=== PATIENT | female | born 1970 | race Hispanic/Latino ===

== ENCOUNTER 2023-04-12 06:37 | Emergency (ER) | payer OTHER ==
--- OUTSIDE RECORDS SUMMARY | 2023-04-12 06:39 | XMS REPORT | Continuity of Care Document ---
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 94 ON STAND Problems Condition Condition Condition Status Onset Resolution Last Treating Co mments Source Name Details Category Date Date Treatment Clinician Date HTN HTN Disease Active Vangie (hypertens (hypertens 4-05 Se ybold ion) ion) 00:00: - 00 Externa l History of History of Disease Active K anjelica kidney kidney 05 Seybold stones stones 00:00: - 00 Externa l Well adult Well adult Disease Active K elsey exam exam 4-05 Seybold 00:00: - 00 Externa l History of History of Disease Active Overview : Vangie hemorrhagi hemorrhagi 08-10 Bharti Mata c c 00:00: g of this - cerebrovas cerebrovas 00 note Ex terna cular cular might be l accident accident different (CVA) with (CVA) with from the residual residual original. deficit deficit Some left side weakness Allergies, Adverse Reactions, Alerts This patient has no known allergies or adverse reactions. Social History Social Habit Start Date Stop Date Quantity Comments Source Gender identity Vangie Se ybold - External Sexual orientation Vangie Mata - External Tobacco use and 2022-11-12 2022-11-12 Smokeless tobacco Get Mata exposure 00:00:00 00:00:00 non-user - External Alcohol intake 2022-11-12 2022-11-12 Current drinker of Get Mata 00:00:00 00:00:00 alcohol (finding) - Exter nal History of Social 2022-11-12 2022-11-12 Vangie Mata function 00:00:00 00:00:00 - External Education 2022-11-12 2022-11-12 10 Vangie Mata 00:00:00 00:00:00 - External Alcohol Comment 2022-11-12 2022-11-12 occasionally Vangie Mata 00:00:00 00:00:00 - External Sex [birth year] At [birth year] Vangie allen 00:00:00 00:00:00 - External Smoking Status Start Date Stop Date Source Never smoked tobacco Vangie Crawford old - External Medications Ordered Filled Start Stop Current Ordering Indication Dosage Frequency Signature Comments Components Source Medication Medication Date Date Medication? Clinician (SIG) Name Name LISINOPRIL- 2022- No 1{tbl} Take 1 Álvaro dejesus HCTZ 20-25 4-05 04-05 tablet by y bold MG oral 10:18: 00:00 mouth - Tablet 54 :00 daily Externa l LISINOPRIL- Yes [id number] 1{tbl} Take 1 Vangie HCTZ 20-25 4-05 tablet by Seyb old MG oral 00:00: mouth - Tablet 00 daily Externa l TAKE 1 No TABLET BY 9-05 MOUTH ONCE 00:00: DAILY IN 00 THE MORNING loratadine 2021-0 No 1mg 10 mg 6-23 tablet 00:00: 00 lisinopril 2021-0 No 1mg 20 5-26 mg-hydrochl 00:00: orothiazide 00 25 mg tablet Dose 2021-0 No Unknown 5-23 00:00: 00 Dose 2021-0 No Unknown 5-19 00:00: 00 Dose 2021-0 No Unknown 5-19 00:00: 00 Dose 2021-0 No Unknown 5-18 00:00: 00 Dose 2021-0 No Unknown 5-18 00:00: 00 Dose 2021-0 No Unknown 5-18 00:00: 00 Dose 2021-0 No Unknown 5-18 00:00: 00 Dose 2021-0 No Unknown 5-18 00:00: 00 Dose 2021-0 No Unknown 5-18 00:00: 00 lisinopril 2021-0 No 1mg 20 5-18 mg-hydrochl 00:00: orothiazide 00 25 mg tablet loratadine 2021-0 No 1mg 10 mg 5-18 tablet 00:00: 00 Bromfed DM 0 No 5mg/5 2 mg-30 5-18 mL mg-10 mg/5 00:00: mL oral 00 syrup Dose 2021-0 No Unknown 5-18 00:00: 00 Dose 2021-0 No Unknown 5-18 00:00: 00 Dose 2021-0 No Unknown 5-18 00:00: 00 Dose 2021-0 No Unknown 5-18 00:00: 00 LISINOPRIL- 2021-0 2022- No 1{tbl} Take 1 K elsey HCTZ 20-25 5-18 04-04 tablet by Sey bold MG oral 00:00: 00:00 mouth - Tablet 00 :00 daily Externa l Immunizations Ordered Immunization Filled Immunization Date Status Commen ts Source Name Name Tdap 2022-04-14 Completed 00:00:00 Influenza, 2022-04-14 Completed injectable, Madin 00:00:00 Hina Canine Kidney, preservative-free, quadrivalent SHINGRIX VACCINE 2022-04-14 Completed 00:00:00 Influenza, 2022-04-14 Completed Vangie Mata Injectable, Mdck, 00:00:00 - Exter nal Preservative Free, Quadrivalt Tdap- (Boostrix, 2022-04-14 Completed Vangie brito Adacel) 00:00:00 - External Shingles IM 2022-04-14 Completed Vangie Perez d (Shingrix) 00:00:00 - External Vital Signs Vital Name Observation Time Observation Value Comments Source Systolic blood 2022-11-12 14:57:00 128 mm[Hg] Vangie Mtaa - pressure External Diastolic blood 2022-11-12 14:57:00 82 mm[Hg] Christiano Mata - pressure External Heart rate 2022-11-12 14:57:00 84 /min Vangie peacockbobrando - External Body temperature 2022-11-12 14:57:00 36.61 Brigid Toña Crawfordold - External Respiratory rate 2022-11-12 14:57:00 16 /min Toña Mata - External Body height 2022-11-12 14:57:00 157.5 cm Vangie brito - External Body weight 2022-11-12 14:57:00 59.421 kg Vangie peacockbobrando - External BMI 2022-11-12 14:57:00 23.96 kg/m2 Vangie brito - External Oxygen saturation in 2022-11-12 14:57:00 99 /min Vangie Mata - Arterial blood by External Pulse oximetry Respiratory Rate 2022-04-14 08:13:00 BP Systolic 2022-04-14 08:13:00 112 mm[Hg] BP Diastolic 2022-04-14 08:13:00 79 mm[Hg] Weight Measured 2022-04-14 08:13:00 130.40 pounds Height Measured 2022-04-14 08:13:00 62.00 inches Body Temperature 2022-04-14 08:13:00 97.60 degrees Heart Rate 2022-04-14 08:13:00 73.00 /min BP Systolic 2022-01-02 08:05:00 123 mm[Hg] BP Diastolic 2022-01-02 08:05:00 86 mm[Hg] Weight Measured 2022-01-02 08:05:00 131.00 pounds Height Measured 2022-01-02 08:05:00 62.00 inches Body Temperature 2022-01-02 08:05:00 97.50 degrees Heart Rate 2022-01-02 08:05:00 84.00 /min Respiratory Rate 2022-01-02 08:05:00 BP Systolic 2021-12-25 10:09:00 125 mm[Hg] BP Diastolic 2021-12-25 10:09:00 87 mm[Hg] Weight Measured 2021-12-25 10:09:00 132.60 pounds Height Measured 2021-12-25 10:09:00 62.00 inches Body Temperature 2021-12-25 10:09:00 98.30 degrees Heart Rate 2021-12-25 10:09:00 82.00 /min Respiratory Rate 2021-12-25 10:09:00 17.00 /min Procedures This patient has no known procedures. Plan of Care Planned Activity Planned Date Details Comments Source Goal Plan of Care Note [code = 58430-2] Goal Plan of Care Note [code = 54259-6] Goal Plan of Care Note [code = 81609-6] Goal Plan of Care Note [code = 97079-3] Goal Plan of Care Note [code = 99873-1] Goal Plan of Care Note [code = 40114-9] Goal Plan of Care Note [code = 67219-1] Goal Plan of Care Note [code = 27029-4] Goal Plan of Care Note [code = 17621-6] Goal Plan of Care Note [code = 11189-5] Goal Plan of Care Note [code = 85818-8] Goal Plan of Care Note [code = 10946-1] Encounters Start End Encounter Admission Attending Care Care Encounter Source Date/Time Date/Time Type Type Clinicians Facility Department ID 2023-01-19 2023-01-19 Outpatient VANGIE GUY [id number] Vangie 00:00:00 00:00:00 ALEXA Seybol d 2023-01-12 2023-01-12 Outpatient VANGIE GUY [id number] Vangie 00:00:00 00:00:00 ALEXA Seybol d 2022-12-19 2022-12-19 Outpatient VANGIE GUY [id number] Vangie 00:00:00 00:00:00 ALEXA Seybol d 2022-12-16 2022-12-16 Outpatient VANGIE GUY [id number] Vangie 00:00:00 00:00:00 ALEXA Seybol d 2022-12-12 2022-12-12 Outpatient VANGIE GUY [id number] Vangie 00:00:00 00:00:00 ALEXA Seybol d 2022-11-21 2022-11-21 Outpatient VANGIE GYU [id number] Vangie 00:00:00 00:00:00 ALEXA Crawfordol zhen 2022-11-12 2022-11-12 Outpatient VANGIE GUY [id number] Vangie 10:00:00 10:00:00 ALEXA Crawfordol zhen 2022-04-14 2022-04-14 Outpatient [id number] 00:00:00 00:00:00 Visit [id number] Results Test Description Test Time Test Comments Results Result Comments Source CBC W/AUTO DIFF WITH PLATELETS 2022-04-16 10:18:22 Test Item Value Reference Range Interpretation Comme nts WBC (test code = 1001) 7.4 K/UL 3.5-11.0 RBC (test code = 1002) 5.01 M/UL 3.80-5.40 HEMOGLOBIN (test code = 1003) 15.2 G/DL 11.5-15.5 HEMATOCRIT (test code = 1004) 45.0 % 34.0-45.0 MCV (test code = 1005) 89.8 fL 80.0-99.0 MCH (test code = 1006) 30.3 PG 25.0-33.0 MCHC (test code = 1007) 33.8 G/DL 31.0-36.0 RDW (test code = 1038) 12.8 % 11.5-15.0 NEUTROPHILS (test code = 79.7 % 1008) LYMPHOCYTES (test code = 12.7 % 1010) MONOCYTES (test code = 1011) 5.9 % EOSINOPHILS (test code = 1.3 % 1012) BASOPHILS (test code = 1013) 0.3 % IMMATURE GRANULOCYTES (test 0.1 % code = 1036) NUCLEATED RBCS (test code = 0.0 /100 WBC'S See_Comment [Automated message] The 1065) system which ge nerated this result transmit jackeline reference range : 0.0. The reference range was not used to interpr et this result as marlys l/abnormal. PLATELET COUNT (test code = 274 K/UL [id number] 0647) ABSOLUTE NEUTROPHILS (test 5.90 K/UL 1.50-7.50 code = 1066) ABSOLUTE LYMPHOCYTES (test 0.94 K/UL 1.00-4.00 L code = 1067) ABSOLUTE MONOCYTES (test code 0.44 K/UL 0.20-1.00 = 1068) ABSOLUTE EOSINOPHILS (test 0.10 K/UL 0.00-0.50 code = 1040) ABSOLUTE BASOPHILS (test code 0.02 K/UL 0.00-0.20 = 1069) ABS IMMATURE GRANULOCYTES 0.01 K/UL 0.00-0.10 (test code = 1020) ABS NUCLEATED RBCS (test code 0.00 K/UL 0.00-0.11 = 12328) HEMOGLOBIN [id number] 08:55:19 Test Item Value Reference Range Interpretation Comments HEMOGLOBIN A1c (test code = 51288) 5.9 % 4.2-5.6 H COMPREHENSIVE METABOLIC [id number] 06:58:53 Test Item Value Reference Range Interpretation Comments GLUCOSE (test code = 102 MG/DL 70-99 H 2216) BUN (test code = 22 MG/DL 6-20 H 2207) CREATININE (test 1.10 MG/DL 0.60-1.30 code = 2214) eGFR (2020 CKD-EPI) 61 ML/MIN/1.73 >60 (test code = 61544) CALC BUN/CREAT (test 20 RATIO 6-28 code = 2235) SODIUM (test code = 141 MEQ/L 297-269 6071) POTASSIUM (test code 3.9 MEQ/L 3.5-5.4 = 222) CHLORIDE (test code 99 MEQ/L 95-107 = 221) CARBON DIOXIDE (test 30 MEQ/L 19-31 code = 2206) CALCIUM (test code = 10.0 MG/DL 8.5-10.5 2208) PROTEIN, TOTAL (test 7.5 G/DL 6.1-8.3 code = 2229) ALBUMIN (test code = 4.5 G/DL 3.5-5.2 2200) CALC GLOBULIN (test 3.0 G/DL 1.9-3.7 code = 2240) CALC A/G RATIO (test 1.5 RATIO 1.0-2.6 code = 2234) BILIRUBIN, TOTAL 0.6 MG/DL See_Comment [Automated message] (test code = 2207) The syste m which generated this result transmit jackeline reference range : <=1.2. The refe rence range was not u sed to interpret th is result as normal/abnormal . ALKALINE PHOSPHATASE 74 U/L 40-128 (test code = 4) AST (test code = 19 U/L 9-40 2217) ALT (test code = 21 U/L 5-40 2218) LIPID [id number] 06:58:53 Test Item Value Reference Range Interpretation Comments CHOLESTEROL (test 216 MG/DL <200 H code = 2210) TRIGLYCERIDES (test 121 MG/DL <150 code = 2232) HDL CHOLESTEROL (test 59 MG/DL >39 code = 2220) CALC LDL CHOL (test 134 MG/DL <100 H NOTE: C ALCULATED LDL code = 2237) IS BASED ON DIMA-LOPEZ METHOD WHICHINCLUDES ADJUSTABLE TRIGLYCERIDE:VL DL CHOLESTEROL RAT IO.THIS FACTOR VARIES B Y MEASURED TRIGLY CERIDE AND NON-HDLCHOL ESTEROL CONCENTRATIONS WITH INCREASED CALCU LATED LDL SEENIN HIGH ER TRIGLYCERIDE OR LOWER NON-HDL SPECIME NS. FOR MOREINFORMATION , SEE CLIENT ANNOUNCE MENT AT [email or web address] RATIO LDL/HDL 2.27 RATIO <3.22 UNLESS O THERWISE (test code = 2238) INDICATED , ALL TESTING PERFORMED [facility] PATHOLOGY [facility]. [address] [place] [id number] KATHI FELIZ DIRECTOR: YESI TSANG M.D. CLIA NUMBER [id number] CAP ACCREDITATION N O. [id number] OCCULT BLD,FECAL,IMMUNOASSAY [id number] 10:53:23 Test Item Value Reference Range Interpretation Comments OCCULT BLD, FECAL NEGATIVE NEGATIVE UNLESS OT HERWISE (test code = 00609) INDICATE D, ALL TESTING PERFORMED [facility] PATHOLOGY [facility], [facility]. [address] [place] [address] KATHI FELIZ DIRECTOR: YESI TSANG M.D. CLIA NUMBER [id number] CAP ACCREDITATION N O. [id number] OCCULT BLD,FECAL,IMMUNOASSAY [id number] 00:00:00 Test Item Value Reference Range Interpretation Comments OCCULT BLD, FECAL (test code = NEGATIVE 92834) OCCULT BLD,FECAL,IMMUNOASSAY [id number] 00:00:00 Test Item Value Reference Range Interpretation Comments OCCULT BLD, FECAL (test code = NEGATIVE 84852) HEMOGLOBIN [id number] 09:10:14 Test Item Value Reference Range Interpretation Comments HEMOGLOBIN A1c (test 5.7 % 4.2-5.6 H UNLESS OTHERWISE code = 30636) INDICATED, ALL TESTING PERFORMED [facility], [facility]. [address], [place] [id number] [place] [address] DIRECTOR: YESI TSANG M.D. IA NUMBER [id number] CAP ACCREDITATION N O. [id number] COMPREHENSIVE METABOLIC [id number] 04:48:19 Test Item Value Reference Range Interpretation Comments GLUCOSE (test code = 80 MG/DL 70-99 2216) BUN (test code = 19 MG/DL 6-20 2207) CREATININE (test 0.94 MG/DL 0.60-1.30 code = 2214) eGFR (2020 CKD-EPI) 74 ML/MIN/1.73 >60 (test code = 52970) CALC BUN/CREAT (test 20 RATIO 6-28 code = 2235) SODIUM (test code = 142 MEQ/L 620-985 2643) POTASSIUM (test code 3.6 MEQ/L 3.5-5.4 = 2227) CHLORIDE (test code 102 MEQ/L 95-107 = 221) CARBON DIOXIDE (test 26 MEQ/L 19-31 code = 2206) CALCIUM (test code = 9.6 MG/DL 8.5-10.5 2208) PROTEIN, TOTAL (test 7.3 G/DL 6.1-8.3 code = 2229) ALBUMIN (test code = 4.4 G/DL 3.5-5.2 2200) CALC GLOBULIN (test 2.9 G/DL 1.9-3.7 code = 2240) CALC A/G RATIO (test 1.5 RATIO 1.0-2.6 code = 2234) BILIRUBIN, TOTAL 0.6 MG/DL See_Comment [Automated message] (test code = 2207) The syste m which generated this result transmit jackeline reference range : <=1.2. The refe rence range was not u sed to interpret th is result as normal/abnormal . ALKALINE PHOSPHATASE 66 U/L 40-128 (test code = 2204) AST (test code = 11 U/L 9-40 221) ALT (test code = 9 U/L 5-40 221) LIPID [id number] 04:48:19 Test Item Value Reference Range Interpretation Comments CHOLESTEROL (test 213 MG/DL <200 H code = 2210) TRIGLYCERIDES (test 85 MG/DL <150 code = 2232) HDL CHOLESTEROL (test 69 MG/DL >39 code = 2220) CALC LDL CHOL (test 126 MG/DL <100 H NOTE: C ALCULATED LDL code = 2237) IS BASED ON DIMA-LOPEZ METHOD WHICHINCLUDES ADJUSTABLE TRIGLYCERIDE:VL DL CHOLESTEROL RAT IO.THIS FACTOR VARIES B Y MEASURED TRIGLY CERIDE AND NON-HDLCHOL ESTEROL CONCENTRATIONS WITH INCREASED CALCU LATED LDL SEENIN HIGH ER TRIGLYCERIDE OR LOWER NON-HDL SPECIME NS. FOR MOREINFORMATION , SEE CLIENT ANNOUNCE MENT AT [email or web address] [email or web address] RATIO LDL/HDL 1.83 RATIO <3.22 (test code = 2238) COMPREHENSIVE METABOLIC [id number] 00:00:00 Test Item Value Reference Range Interpretation Comments GLUCOSE (test code = 2217) 80 MG/DL BUN (test code = 2208) 19 MG/DL CREATININE (test code = 2214) 0.94 MG/DL eGFR (2020 CKD-EPI) (test code 74 ML/MIN/1.73 = 54211) CALC BUN/CREAT (test code = 20 RATIO 2235) SODIUM (test code = 2231) 142 MEQ/L POTASSIUM (test code = 2228) 3.6 MEQ/L CHLORIDE (test code = 2215) 102 MEQ/L CARBON DIOXIDE (test code = 26 MEQ/L 2205) CALCIUM (test code = 2209) 9.6 MG/DL PROTEIN, TOTAL (test code = 7.3 G/DL 2228) ALBUMIN (test code = 2201) 4.4 G/DL CALC GLOBULIN (test code = 2.9 G/DL 0) CALC A/G RATIO (test code = 1.5 RATIO 2234) BILIRUBIN, TOTAL (test code = 0.6 MG/DL 2206) ALKALINE PHOSPHATASE (test 66 U/L code = 2204) AST (test code = 2218) 11 U/L ALT (test code = 2219) 9 U/L COMPREHENSIVE METABOLIC [id number] 00:00:00 Test Item Value Reference Range Interpretation Comments GLUCOSE (test code = 2217) 80 MG/DL BUN (test code = 2208) 19 MG/DL CREATININE (test code = 2214) 0.94 MG/DL eGFR (2020 CKD-EPI) (test code 74 ML/MIN/1.73 = 02030) CALC BUN/CREAT (test code = 20 RATIO 2235) SODIUM (test code = 2231) 142 MEQ/L POTASSIUM (test code = 2228) 3.6 MEQ/L CHLORIDE (test code = 2215) 102 MEQ/L CARBON DIOXIDE (test code = 26 MEQ/L 2205) CALCIUM (test code = 2209) 9.6 MG/DL PROTEIN, TOTAL (test code = 7.3 G/DL 2228) ALBUMIN (test code = 2201) 4.4 G/DL CALC GLOBULIN (test code = 2.9 G/DL 2239) CALC A/G RATIO (test code = 1.5 RATIO 2233) BILIRUBIN, TOTAL (test code = 0.6 MG/DL 2206) ALKALINE PHOSPHATASE (test 66 U/L code = 2204) AST (test code = 2218) 11 U/L ALT (test code = 2219) 9 U/L LIPID [id number] 00:00:00 Test Item Value Reference Range Interpretation Comments CHOLESTEROL (test code = 2210) 213 MG/DL TRIGLYCERIDES (test code = 2232) 85 MG/DL HDL CHOLESTEROL (test code = 2220) 69 MG/DL CALC LDL CHOL (test code = 2237) 126 MG/DL RISK RATIO LDL/HDL (test code = 1.83 RATIO 2238) LIPID [id number] 00:00:00 Test Item Value Reference Range Interpretation Comments CHOLESTEROL (test code = 2210) 213 MG/DL TRIGLYCERIDES (test code = 2232) 85 MG/DL HDL CHOLESTEROL (test code = 2220) 69 MG/DL CALC LDL CHOL (test code = 2237) 126 MG/DL RISK RATIO LDL/HDL (test code = 1.83 RATIO 2238) HEMOGLOBIN [id number] 00:00:00 Test Item Value Reference Range Interpretation Comments HEMOGLOBIN A1c (test code = 48677) 5.7 % HEMOGLOBIN [id number] 00:00:00 Test Item Value Reference Range Interpretation Comments HEMOGLOBIN A1c (test code = 18640) 5.7 % HEMOGLOBIN [id number] 00:00:00 Test Item Value Reference Range Interpretation Comments HEMOGLOBIN A1c (test code = 27410) 5.7 %
[2023-04-12 07:03] LABS: Absolute Lymphocytes (CBC) 1.3 K/uL (0.7-4.9); Hematocrit 44.1 % (36.0-45.0); MPV 8.3 fL (7.6-11.3); Platelets 274 thou/uL (152-406); RBC Red Blood Cell Count 4.84 M/uL (3.86-4.86)
[2023-04-12] MEDS ORDERED: ONDANSETRON 4 MG/2 ML VIAL ONE (07:05)
[2023-04-12] MEDS ORDERED: MORPHINE 4 MG/ML SYR ONE (07:05)
[2023-04-12] MEDS ORDERED: NA CHLORIDE 0.9% 1,000 ML ONE (07:05)
[2023-04-12 07:19] LABS: Albumin 3.8 g/dL (3.4-5.0); Bilirubin Total 0.4 mg/dL (0.2-1.0); Protein, Total 7.9 g/dL (6.4-8.2)
[2023-04-12 08:11] LABS: Specific Gravity 1.009 (1.005-1.030)
--- NOTE | 2023-04-12 08:11 | RAD REPORT ---
EXAM DESCRIPTION: CTAbdomen Pelvis W Contrast - 04/12/2023 7:50 am CLINICAL HISTORY: ABD PAIN COMPARISON: No comparisons TECHNIQUE: CT of the abdomen and pelvis was performed. All CT scans are performed using dose optimization technique as appropriate and may include automated exposure control or mA/KV adjustment according to patient size. FINDINGS: Lower chest: No acute abnormality. Liver: No acute abnormality or suspicious lesions. Biliary: No biliary ductal dilatation. Stomach: No significant focal abnormality. Duodenum: No significant focal abnormality. Pancreas: No significant abnormality. Spleen: No significant abnormality. Adrenal: No suspicious lesions. Kidney/ureter: No hydronephrosis. 3 mm stone in lower pole right kidney. Too small to characterize an d/or benign appearing renal lesions are noted. Retroperitoneum: No retroperitoneal adenopathy. Vascular: No aneurysm. IVC filter. Bowel: No significant focal abnormality. Nonvisualized appendix. No secondary signs of acute appendic itis. Peritoneum: No ascites or free air. Bladder: Grossly unremarkable. Reproductive: No adnexal masses. Bones: No acute fracture. Other: n/a IMPRESSION: No acute intra-abdominal or pelvic finding. Nonobstructing stone in the right kidney.
[2023-04-12 08:17] LABS: Specific Gravity 1.009 (1.005-1.030); Urine Bacteria None Seen /HPF (<20); Urine Bilirubin NEGATIVE (Negative); Urine Blood Negative (Negative); Urine Clarity Turbid (Clear); Urine Color Dark-Yellow (Yellow); Urine Glucose NEGATIVE (Negative); Urine Protein NEGATIVE (Negative); Urine RBC <5 /HPF (None Seen); Urine Urobilinogen Normal (Normal); Urine pH 6.5 (5.0-7.0)
--- NOTE | 2023-04-12 08:20 | EDPHYS ---
Physician Documentation [facility] Name: Jacy Guthrie Age: 52 yrs Sex: Female : 1970 Arrival Date: 04/12/2023 Time: 06:37 Bed 8 Private MD: ED Physician Jarrell Barrera HPI: 04/12 07:08 This 52 yrs old Female presents to ER via Ambulatory with complaints of SIDE sp3 PAIN. 07:08 52-year-old female with a history of hypertension and multiple kidney stones throughout sp3 her life with the first one at 11 years of age now presents to the ED with recurrent right-sided abdominal pain and mild right-sided flank pain. Pain comes and goes and currently it is better however she states when she was in the waiting room it was quite severe. She denies any other symptoms including fever, URI symptoms, chest pain, shortness of breath, abdominal pain, upper back pain, [employer] symptoms including vaginal bleeding or discharge, nausea, vomiting, diarrhea, syncope, near syncope, trauma, rash, known sick contacts, travel history, or any other signs or symptoms on ROS at this time.. Historical: - Allergies: 07:02 No Known Allergies; vc1 - Home Meds: 07:02 lisinopril-hydrochlorothiazide 20-12.5 mg oral tablet daily [Active]; vc1 - PMHx: 07:02 Hypertensive disorder; vc1 - PSHx: 07:02 None; vc1 - Immunization history:: Client reports receiving the 2nd dose of the Covid vaccine. - Social history:: Smoking status: Patient denies any tobacco usage or history of. ROS: 07:09 Constitutional: Negative for fever, chills, and weight loss, Eyes: Negative for injury, sp3 pain, redness, and discharge, Neck: Negative for injury, pain, and swelling, Cardiovascular: Negative for chest pain, palpitations, and edema, Respiratory: Negative for shortness of breath, cough, wheezing, and pleuritic chest pain, MS/Extremity: Negative for injury and deformity, Skin: Negative for injury, rash, and discoloration, Neuro: Negative for headache, weakness, numbness, tingling, and seizure. 07:09 All other systems are negative. Exam: 07:09 Constitutional: This is a well developed, well nourished patient who is awake, alert, sp3 and in no acute distress. Head/Face: Normocephalic, atraumatic. Eyes: Pupils equal round and reactive to light, extra-ocular motions intact. Lids and lashes normal. Conjunctiva and sclera are non-icteric and not injected. Cornea within normal limits. Periorbital areas with no swelling, redness, or edema. Neck: Trachea midline, no thyromegaly or masses palpated, and no cervical lymphadenopathy. Supple, full range of motion without nuchal rigidity, or vertebral point tenderness. No Meningismus. Chest/axilla: Normal chest wall appearance and motion. Nontender with no deformity. No lesions are appreciated. Cardiovascular: Regular rate and rhythm with a normal S1 and S2. No gallops, murmurs, or rubs. Normal PMI, no JVD. No pulse deficits. Respiratory: Lungs have equal breath sounds bilaterally, clear to auscultation and percussion. No rales, rhonchi or wheezes noted. No increased work of breathing, no retractions or nasal flaring. Back: No spinal tenderness. No costovertebral tenderness. Full range of motion. Skin: Warm, dry with normal turgor. Normal color with no rashes, no lesions, and no evidence of cellulitis. MS/ Extremity: Pulses equal, no cyanosis. Neurovascular intact. Full, normal range of motion. Neuro: Awake and alert, GCS 15, oriented to person, place, time, and situation. Cranial nerves II-XII grossly intact. Motor strength 5/5 in all extremities. Sensory grossly intact. Cerebellar exam normal. Normal gait. Psych: Awake, alert, with orientation to person, place and time. Behavior, mood, and affect are within normal limits. 07:09 Abdomen/GI: Mild right lower quadrant abdominal pain to palpation without peritoneal signs, rebound or guarding.. Vital Signs: 06:57 BP 121 / 94; Pulse 92; Resp 16; Temp 98.9; Pulse Ox 100% ; Weight 59.87 kg; Height 5 vc1 ft. 2 in. ; Pain 0/10; 08:51 BP 124 / 78; Pulse 82; Resp 16; Pulse Ox 99% on R/A; hb 06:57 Body Mass Index 24.14 (59.87 kg, 157.48 cm) vc1 06:57 Pain Scale: Adult vc1 MDM: 06:45 Patient medically screened. [facility] 07:09 Data reviewed: vital signs, nurses notes, lab test result(s), radiologic studies. ED sp3 course: 52-year-old female with kidney stone history and hypertension now presents with recurrent right lower quadrant abdominal pain. Differential diagnosis includes ureterolithiasis, renal colic, pyelonephritis, UTI, functional abdominal pain, musculoskeletal pain, among others. I am not highly suspicious for vascular pathology including aortic dissection or aneurysm, [employer] pathology, or any other critical pathology at this time including sepsis and shock. Work-up will include CT scan of the abdomen and pelvis, laboratory values, UA, and treatment will include as needed pain and nausea medications. Patient currently declines we will await work-up.. 08:17 ED course: Patient's work-up demonstrates no significant findings. CT demonstrates sp3 single 3 mm stone in the kidney itself with no stones in the collecting system or evidence of hydronephrosis. Given patient's resolution of symptoms, I believe she likely had a stone in the right side that has now passed. No signs of infection noted. Appendix and other items are negative. WBC count is normal. Patient is requesting something very minor for pain control and in case it comes back as that is her main concern. Since she is driving, we will administer ketorolac 15 mg IV and discharge her on oral NSAID with follow-up to her PCP.. 04/12 06:46 Order name: CBC with Diff; Complete Time: 08:14 [facility] 04/12 06:46 Order name: CMP; Complete Time: 08:14 [facility] 04/12 06:46 Order name: Lipase; Complete Time: 08:14 [facility] 04/12 06:46 Order name: Test, Urine; Complete Time: 08:20 [facility] 04/12 06:46 Order name: Urinalysis w/ reflexes; Complete Time: 08:20 [facility] 04/12 06:46 Order name: CT Abd/Pelvis - IV Contrast Only; Complete Time: 08:14 [facility] 04/12 06:46 Order name: IV Saline Lock; Complete Time: 06:57 [facility] 04/12 06:46 Order name: Labs collected and sent; Complete Time: 06:57 aman Administered Medications: 06:57 Drug: NS 0.9% IV 1000 ml Route: IV; Rate: 1 bolus; Site: right antecubital; vc1 08:42 Follow up: Response: No adverse reaction; IV Status: Completed infusion; IV Intake: kc6 1000ml Disposition Summary: 04/12/23 08:19 Discharge Ordered Location: Home sp3 Condition: Stable sp3 Diagnosis - Kidney stone, abdominal pain, flank pain sp3 Followup: sp3 - With: Private Physician - When: Upon discharge from the Emergency Department - Reason: Continuance of care Discharge Instructions: - Discharge Summary Sheet sp3 - Kidney Stones, [id number] sp3 Forms: - Medication Reconciliation Form sp3 - Thank You Letter sp3 - Antibiotic Education sp3 - Prescription Opioid Use sp3 - Patient Portal Instructions sp3 - Leadership Thank You Letter sp3 Prescriptions: - Diclofenac Sodium 75 mg Oral Tablet Sustained Release - take 1 tablet by ORAL route 2 times per day; 30 tablet; Refills: 0, Product sp3 Selection Permitted Signatures: Dispatcher [employer] Shree Sanchez MD MD cha Patel, Setul, MD MD sp3 Qi Elmore RN RN vc1 Sherice Byrd RN kc6
--- NOTE | 2023-04-12 08:20 | ER ---
Nurse's Notes [facility] Name: Jacy Guthrie Age: 52 yrs Sex: Female : 1970 Arrival Date: 04/12/2023 Time: 06:37 Bed 8 Private MD: Diagnosis: Kidney stone, abdominal pain, flank pain Presentation: 04/12 06:57 Chief complaint: Patient states: I've been having right sided pain off and on for two vc1 weeks. About 30 minutes ago it hit really hard but it is gone now. I have a history of kidney stones so I took an azo last night. Coronavirus screen: Vaccine status: Patient reports receiving the 2nd dose of the covid vaccine. [employer] Client denies travel out of the [place] in the last 14 days. At this time, the client does not indicate any symptoms associated with coronavirus-19. Ebola Screen: Patient negative for fever greater than or equal to 101.5 degrees Fahrenheit, and additional compatible Ebola Virus Disease symptoms Patient denies exposure to infectious person. Patient denies travel to an Ebola-affected area in the 21 days before illness onset. No symptoms or risks identified at this time. Initial Sepsis Screen: Does the patient meet any 2 criteria? No. Patient's initial sepsis screen is negative. Does the patient have a suspected source of infection? No. Patient's initial sepsis screen is negative. Risk Assessment: Do you want to hurt yourself or someone else? Patient reports no desire to harm self or others. Onset of symptoms is unknown. 06:57 Method Of Arrival: Ambulatory vc1 06:57 Acuity: JAKE 4 vc1 Triage Assessment: 07:03 General: Appears in no apparent distress. comfortable, Behavior is calm, cooperative, vc1 appropriate for age. Pain: Denies pain. EENT: No deficits noted. No signs and/or symptoms were reported regarding the EENT system. Neuro: Level of Consciousness is awake, alert, obeys commands, Oriented to person, place, time, situation, Appropriate for age. Cardiovascular: No deficits noted. Respiratory: Airway is patent Respiratory effort is even, unlabored, Respiratory pattern is regular, symmetrical. GI: No deficits noted. No signs and/or symptoms were reported involving the gastrointestinal system. : No deficits noted. No signs and/or symptoms were reported regarding the genitourinary system. Derm: No deficits noted. No signs and/or symptoms reported regarding the dermatologic system. Musculoskeletal: No deficits noted. No signs and/or symptoms reported regarding the musculoskeletal system. Historical: - Allergies: 07:02 No Known Allergies; vc1 - Home Meds: 07:02 lisinopril-hydrochlorothiazide 20-12.5 mg oral tablet daily [Active]; vc1 - PMHx: 07:02 Hypertensive disorder; vc1 - PSHx: 07:02 None; vc1 - Immunization history:: Client reports receiving the 2nd dose of the Covid vaccine. - Social history:: Smoking status: Patient denies any tobacco usage or history of. Screenin:04 [facility] ED Fall Risk Assessment (Adult) History of falling in the last 3 months, vc1 including since admission No falls in past 3 months (0 pts) Confusion or Disorientation No (0 pts) Intoxicated or Sedated No (0 pts) Impaired Gait No (0 pts) Mobility Assist Device Used No (0 pt) Altered Elimination No (0 pt) Score/Fall Risk Level 0 - 2 = Low Risk Oriented to surroundings, Maintained a safe environment, Educated pt \T\ family on fall prevention, incl call for assistance when getting out of bed. Abuse screen: Denies threats or abuse. Nutritional screening: No deficits noted. Nutritional screening: No deficits noted. Tuberculosis screening: No symptoms or risk factors identified. Assessment: 07:00 Reassessment: Patient appears in no apparent distress at this time. General: Appears in kc6 no apparent distress. comfortable, Behavior is calm, cooperative, appropriate for age. 08:00 Reassessment: Patient appears in no apparent distress at this time. No changes from kc6 previously documented assessment. Patient and/or family updated on plan of care and expected duration. Pain level reassessed. Patient is alert, oriented x 3, equal unlabored respirations, skin warm/dry/pink. 08:51 Reassessment: Patient appears in no apparent distress at this time. Patient and/or hb family updated on plan of care and expected duration. Pain level reassessed. Patient is alert, oriented x 3, equal unlabored respirations, skin warm/dry/pink. Vital Signs: 06:57 BP 121 / 94; Pulse 92; Resp 16; Temp 98.9; Pulse Ox 100% ; Weight 59.87 kg; Height 5 vc1 ft. 2 in. ; Pain 0/10; 08:51 BP 124 / 78; Pulse 82; Resp 16; Pulse Ox 99% on R/A; hb 06:57 Body Mass Index 24.14 (59.87 kg, 157.48 cm) vc1 06:57 Pain Scale: Adult vc1 ED Course: 06:41 Patient arrived in ED. kj1 06:45 Shree Goodman MD is Attending Physician. aman 07:00 Report received from Barb Camargo RN \T\ Qi Nance RN. kc6 07:01 Attending Physician role handed off by Shree Goodman MD sp3 07:01 Jarrell Barrera MD is Attending Physician. sp3 07:02 Triage completed. vc1 07:03 Arm band placed on right wrist. vc1 07:05 Patient has correct armband on for positive identification. Bed in low position. Pulse vc1 ox on. NIBP on. 07:51 CT Abd/Pelvis - IV Contrast Only In Process Unspecified. EDMS 08:04 Test, Urine Sent. ds4 08:04 Urinalysis w/ reflexes Sent. ds4 08:51 Provided Education on: . hb 08:51 No provider procedures requiring assistance completed. IV discontinued, intact, hb bleeding controlled, No redness/swelling at site. Administered Medications: 06:57 Drug: NS 0.9% IV 1000 ml Route: IV; Rate: 1 bolus; Site: right antecubital; vc1 08:42 Follow up: Response: No adverse reaction; IV Status: Completed infusion; IV Intake: kc6 1000ml Medication: 07:05 VIS not applicable for this client. vc1 Intake: 08:42 IV: 1000ml; Total: 1000ml. kc6 Outcome: 08:19 Discharge ordered by . sp3 08:51 Discharged to home ambulatory, with family. hb 08:51 Condition: stable 08:51 Discharge instructions given to patient, family, Instructed on discharge instructions, follow up and referral plans. medication usage, Demonstrated understanding of instructions, follow-up care, medications, Prescriptions given X 1. 08:52 Patient left the ED. hb Signatures: Dispatcher [employer] EDMS Shree Goodman MD MD cha Swanson, Donovan ds4 Chacha Raymundo RN RN Tamela Vargas kj1 Jarrell Barrera MD MD sp3 Qi Elmore RN RN vc1 Sherice Byrd, RN RN kc6
[2023-04-12] MEDS ORDERED: KETOROLAC 30 MG/ML INJ ONE (08:58)
[2023-04-12 08:59] VITALS: TEMP 98.9
[2023-04-12 09:06] VITALS: BP 124/78; O2SAT 99
== END 2023-04-12 08:52 | disposition home or self-care (01) ==
LOC: ER 06:37
DX: N20.0 Calculus of kidney (principal); I10 Essential (primary) hypertension; Z87.442 Personal history of urinary calculi
CPT/HCPCS: 96361; 85025; 81001; 36415; 81025; 83690; 80053; 74177; 96360; 99284; Q9967; J7030; J2405